=== PATIENT | male | born 1980 | race Caucasian/White ===

== ENCOUNTER 2016-05-14 06:47 | Emergency (ER) | payer OTHER ==
--- NOTE | 2016-05-14 07:12 | Emergency Department Record ---
History of Present Illness - General Chief complaint: Cold Stated complaint: COLD FOR A MONTH Time Seen by Provider: 05/14/16 07:06 Source: Patient Mode of Arrival: Ambulatory Limitations: No limitations - History of Present Illness Initial comments: 35 yo male presents with about 3 weeks of sinus drainage and congestion with facial pain. The drainage is discolored. No fevers. Mild cough. He has some pressure in the ears as well. No NVD. NO vision changes. PCP Hankenson. ALMANZAR complaint: Sore throat, Other (Nasal congestion with drainage) Onset/Timin -: Week(s) Severity: Moderate Severity scale (1-10): 4 Quality: Aching Consistency: Constant Improves with: None Worsens with: Swallowing Associated Symptoms: Fever, Pain with swallowing, Sore throat - Related Data Previous Rx's Medication Instructions Recorded Azithromycin [Zithromax] 250 mg PO DAILY #6 tab 05/14/16 Fluticasone Propionate [Flonase] 2 spray EACH NARES DAILY #1 bottle 05/14/16 Allergies Allergy/AdvReac Type Severity Reaction Status Date / Time No Known Drug Allergies Allergy Verified 07/15/15 07:30 Travel Screening - Travel/Exposure Within Last 30 Days Have you traveled within the last 30 days?: No - Travel Symptoms Symptom Screening: None Review of Systems Constitutional: Denies: Chills, Fever, Malaise, Weakness Eyes: Denies: Eye discharge, Eye pain, Photophobia, Vision change ENT: Reports: Congestion, Ear pain, Throat pain Respiratory: Reports: Cough. Denies: Dyspnea, Hemoptysis, Stridor, Wheezes Cardiovascular: Denies: Chest pain, Palpitations, Syncope Endocrine: Denies: Fatigue Gastrointestinal: Denies: Abdominal pain, Diarrhea, Nausea, Vomiting Genitourinary: Denies: Dysuria, Frequency, Hematuria Musculoskeletal: Denies: Arthralgia, Back pain, Myalgia Skin: Denies: Bruising, Change in color, Rash Neurological: Reports: Headache. Denies: Abnormal gait, Confusion, Numbness, Paresthesias, Tingling, Tremors, Vertigo, Weakness Psychiatric: Denies: Anxiety Hematological/Lymphatic: Reports: Swollen glands. Denies: Blood Clots, Easy bleeding, Easy bruising Past Medical History - SOCIAL HISTORY Smoking Status: Never smoker - RESPIRATORY Hx Respiratory Disorders: No - CARDIOVASCULAR Hx Cardio Disorders: No - NEURO Hx Neuro Disorders: No - GI Hx GI Disorders: Yes Hx Reflux: Yes Hx Hiatal Hernia: Yes - Hx Genitourinary Disorders: No - ENDOCRINE Hx Endocrine Disorders: No - MUSCULOSKELETAL Hx Musculoskeletal Disorders: No - PSYCH Hx Psych Problems: No - HEMATOLOGY/ONCOLOGY Hx Hematology/Oncology Disorders: No Family Medical History Any Significant Family History?: Yes Family Hx Comment (NOT TO BE USED IN PLACE OF ITEMS BELOW): Father- hiatal hernia Hx Cancer: Mother Hx Heart Disease: Grandparents Hx HTN: Grandparents Hx Stroke: Grandparents Physical Exam - General General Appearance: Alert, Oriented x3, Cooperative, No acute distress Limitations: No limitations - Head Head exam: Normocephalic, Normal inspection - Eye Eye exam: Normal appearance, PERRL. negative: Conjunctival injection, Periorbital swelling, Scleral icterus - ENT ENT exam: Normal exam, Mucous membranes moist, Normal external ear exam, Normal orophraynx, TM's normal bilaterally. negative: Mucous membranes dry Ear exam: Normal external inspection. negative: External canal tenderness Nasal Exam: Discharge (yellow in color), Sinus tenderness (facial, and frontal) . negative: Active bleeding, Dried blood Mouth exam: Normal external inspection, Tongue normal Teeth exam: Normal inspection. negative: Dental caries Throat exam: Normal inspection. negative: Tonsillar erythema, Tonsillar exudate - Neck Neck exam: Normal inspection, Full ROM. negative: Lymphadenopathy, Meningismus , Tenderness - Respiratory Respiratory exam: Normal lung sounds bilaterally. negative: Respiratory distress - Cardiovascular Cardiovascular Exam: Regular rate, Normal rhythm, Normal heart sounds - Rectal Rectal exam: Deferred - exam: Deferred - Extremities Extremities exam: Normal inspection, Normal capillary refill. negative: Pedal edema - Back Back exam: Reports: Full ROM - Neurological Neurological exam: Alert, Normal gait, Oriented X3 - Psychiatric Psychiatric exam: Normal affect, Normal mood. negative: Agitated, Anxious - Skin Skin exam: Dry, Intact, Normal color, Warm Course - Reevaluation(s) Reevaluation #1: The examination is CW sinusitis We discussed home care and follow up with the PCP 05/14/16 07:09 Disposition Disposition: Discharge Clinical Impression: Sinusitis Qualifiers: Sinusitis location: frontal Chronicity: acute Recurrence: non-recurrent Qualified Code(s): J01.10 - Acute frontal sinusitis, unspecified Disposition: Home, Self-Care Condition: (1) Good Instructions: Sinusitis (ED) Additional Instructions: Call your doctor for follow up in the next week Return if you have any new concerns or symptoms Prescriptions: Fluticasone Propionate [Flonase] 2 spray EACH NARES DAILY #1 bottle Azithromycin [Zithromax] 250 mg PO DAILY #6 tab Forms: Patient Portal Access Time of Disposition: 07:11
== END 2016-05-14 07:19 | disposition home or self-care (01) ==
LOC: ER 06:47
DX: J01.10 Acute frontal sinusitis, unspecified (principal); R05 Cough; J02.9 Acute pharyngitis, unspecified
CPT/HCPCS: 99282

== ENCOUNTER 2017-02-13 21:42 | Emergency (ER) | payer OTHER ==
--- NOTE | 2017-02-13 22:09 | Emergency Department Record ---
History of Present Illness - General Chief Complaint: Fall Injury Stated Complaint: LT ANKLE SWELLING/PAIN Time Seen by Provider: 02/13/17 22:04 Source: Patient Mode of Arrival: Ambulatory Limitations: No limitations - History of Present Illness Initial Comments: 36 yo male presents to ED for evaluation of medial ankle pain following a trip and fall injury while playing soccer. Patient reports that he was able to ambulate following injury, denies other injury on examination. Patient denies health problems at his baseline. MD Complaint: Fall Onset/Timin -: Hour(s) Fall From: Standing When Fall Occurred: 1 hour DOUBLE CUT SAWYER Fall Witnessed: Yes, by bystander Place Fall Occurred: Other Loss of Consciousness: None Prolonged Down Time?: No Symptoms Prior to Fall: None Location: Other Location - Extremities: Left: Ankle Severity: Mild Severity scale (1-10): 4 Context: Tripped/slipped Associated Symptoms: Denies - [place] Coma Scale Eye Response: (4) Open spontaneously Motor Response: (6) Obeys commands Verbal Response: (5) Oriented Page Total: 15 - Related Data Previous Rx's Medication Instructions Recorded Fluticasone Propionate [Flonase] 2 spray EACH NARES DAILY #1 bottle 05/14/16 Allergies Allergy/AdvReac Type Severity Reaction Status Date / Time No Known Drug Allergies Allergy Verified 02/13/17 21:57 Travel Screening - Travel/Exposure Within Last 30 Days Have you traveled within the last 30 days?: No - Travel/Exposure Within Last Year Have you traveled outside the [place] in the last year?: Yes Location Detail:: [place] - Additonal Travel Details Have you been exposed to anyone with a communicable illness?: No - Travel Symptoms Symptom Screening: None Review of Systems Constitutional: Denies: Chills, Fever, Malaise, Night sweats Eyes: Denies: Eye discharge, Eye pain ENT: Denies: Congestion, Ear pain, Epistaxis Respiratory: Denies: Cough, Dyspnea Cardiovascular: Denies: Chest pain, Dyspnea on exertion Endocrine: Denies: Fatigue, Heat or cold intolerance Gastrointestinal: Denies: Abdominal pain, Nausea, Vomiting Genitourinary: Denies: Incontinence, Retention Musculoskeletal: Reports: Arthralgia, Joint swelling. Denies: Back pain, Gout Skin: Denies: Bruising, Change in color Neurological: Denies: Abnormal gait, Confusion, Headache, Seizure Psychiatric: Denies: Anxiety Hematological/Lymphatic: Denies: Anemia, Blood Clots Past Medical History - SOCIAL HISTORY Smoking Status: Never smoker Alcohol Use: Heavy Alcohol Use Comment: 1 BEER DAILY Drug Use: None - RESPIRATORY Hx Respiratory Disorders: No - CARDIOVASCULAR Hx Cardio Disorders: No - NEURO Hx Neuro Disorders: No - GI Hx GI Disorders: Yes Hx Reflux: Yes Hx Hiatal Hernia: Yes - Hx Genitourinary Disorders: No - ENDOCRINE Hx Endocrine Disorders: No - MUSCULOSKELETAL Hx Musculoskeletal Disorders: No - PSYCH Hx Psych Problems: No - HEMATOLOGY/ONCOLOGY Hx Hematology/Oncology Disorders: No Family Medical History Any Significant Family History?: No Family Hx Comment (NOT TO BE USED IN PLACE OF ITEMS BELOW): Father- hiatal hernia Hx Cancer: Mother Hx Heart Disease: Grandparents Hx HTN: Grandparents Hx Stroke: Grandparents Physical Exam - General General Appearance: Alert, Oriented x3, Cooperative, Mild distress Limitations: No limitations - Head Head exam: Atraumatic, Normocephalic, Normal inspection Head exam detail: negative: Abrasion, Contusion, Porter's sign, General tenderness, Hematoma, Laceration - Eye Eye exam: Normal appearance. negative: Conjunctival injection, Periorbital swelling, Periorbital tenderness, Scleral icterus - ENT Ear exam: negative: Auricular hematoma, Auricular trauma Nasal Exam: negative: Active bleeding, Discharge, Dried blood, Foreign body Mouth exam: negative: Drooling, Laceration, Muffled voice, Tongue elevation - Neck Neck exam: Normal inspection. negative: Meningismus, Tenderness - Respiratory Respiratory exam: Normal lung sounds bilaterally. negative: Rales, Respiratory distress, Rhonchi, Stridor - Cardiovascular Cardiovascular Exam: Regular rate, Normal rhythm, Normal heart sounds Peripheral Pulses: 3+: Dorsalis Pedis (L) - GI/Abdominal GI/Abdominal exam: Soft. negative: Rebound, Rigid, Tenderness - Rectal Rectal exam: Deferred - exam: Deferred - Extremities Extremities exam: Joint swelling, Tenderness, Other (STS and tender to palpation over the left meidal ankle, achilles intact, compartments of the lower extremity are soft on examination, strong DPP, no pain to the proximal leg or foot on exmaination.). negative: Calf tenderness, Pedal edema - Back Back exam: Denies: CVA tenderness (R), CVA tenderness (L) - Neurological Neurological exam: Alert, Normal gait, Oriented X3 - Psychiatric Psychiatric exam: Normal affect, Normal mood - Skin Skin exam: Normal color. negative: Abrasion Type of lesion: negative: abrasion Course Vital Signs 02/13/17 21:52 Pulse Rate 78 Respiratory 18 Rate Blood Pressure 126/83 Pulse Ox 98 - Reevaluation(s) Reevaluation #1: 02/13/17 22:31 Left ankle: no fracture identified Patient was updated on his radiology results, will place in air splint with instructions for follow-up. Disposition Disposition: Discharge Clinical Impression: Medial ankle sprain Qualifiers: Encounter type: initial encounter Laterality: left Qualified Code(s): S93.422A - Sprain of deltoid ligament of left ankle, initial encounter Disposition: Home, Self-Care Condition: (2) Stable Instructions: Ankle Sprain (ED) Additional Instructions: Return to ED if your symptoms worsen or if you have any concerns. Ice and Ibuprofen as needed for pain symptoms Follow-up with your family doctor in 3-5 days as directed. Forms: Patient Portal Access Time of Disposition: 22:30 Quality - Quality Measures Quality Measures: N/A - Blood Pressure Screening Does Patient Have Any of the Following: No Blood Pressure Classification: Pre-Hypertensive BP Reading Systolic Measurement: 126 Diastolic Measurement: 83 Screening for High Blood Pressure: < Pre-Hypertensive BP, F/U Documented > [ G8950] Pre-Hypertensive Follow-up Interventions: Referral to alternative/primary care provider.
--- NOTE | 2017-02-15 08:21 | RADIOLOGY REPORT ---
EXAM: LEFT ANKLE, THREE VIEWS HISTORY: PATIENT HAS MEDIAL ANKLE PAIN. TECHNIQUE: Three views of the left ankle are provided without comparison examinations. FINDINGS: There is no radiographic evidence of a fracture or dislocation of the left ankle. No radiopaque foreign bodies are identified. The ankle mortise is intact. There is soft tissue swelling identified over the medial malleolus. Mild anterior tibiotalar fat pad prominence is noted. IMPRESSION: SOFT TISSUE SWELLING OVER THE MEDIAL MALLEOLUS WITHOUT RADIOGRAPHIC EVIDENCE OF A FRACTURE OR DISLOCATION OF THE LEFT ANKLE. IF THERE IS FURTHER CLINICAL CONCERN FOR A LIGAMENTOUS INJURY THEN MRI OF THE LEFT ANKLE CAN BE OBTAINED FOR FURTHER EVALUATION. JOB NUMBER: [id number] MTDD
== END 2017-02-13 22:37 | disposition home or self-care (01) ==
LOC: ER 21:42
DX: S93.422A Sprain of deltoid ligament of left ankle, initial encounter (principal); W01.0XXA Fall on same level from slipping, tripping and stumbling without subsequent striking against object, initial encounter; Y93.66 Activity, soccer
CPT/HCPCS: 99283

== ENCOUNTER 2017-06-13 00:27 | Emergency (ER) | payer OTHER ==
--- NOTE | 2017-06-13 00:47 | Emergency Department Record ---
History of Present Illness - General Chief complaint: Extremity Problem Stated complaint: LEFT ARM PAIN Time Seen by Provider: 06/13/17 00:47 Source: Patient Mode of Arrival: Ambulatory Limitations: No limitations - History of Present Illness Initial comments: 36 yo male presents to ED for evaluation of left upper extremity pain and numbness that has been constant for >24 hours. Patient denies injury, extremity weakness, chest pain, difficulty in breathing, or worsening of his symptoms with exertion. Patient denies health problems at his baseline, denies CAD history <55 years in his parents, denies smoking history. Patient reports regular exercise without symptoms as well. Patient was reading on the internet that his symptoms may be caused by his heart. MD Complaint: Extremity pain Onset/Timin -: Days(s) Location: Left, Arm History of Same: No -: Yes Myalgia Severity scale (1-10): 8 Quality: Sharp Consistency: Constant Improves with: Nothing Worsens with: Nothing - Related Data Allergies Allergy/AdvReac Type Severity Reaction Status Date / Time No Known Drug Allergies Allergy Verified 02/13/17 21:57 Travel Screening - Travel/Exposure Within Last 30 Days Have you traveled within the last 30 days?: No Review of Systems Constitutional: Denies: Chills, Fever, Malaise, Night sweats Eyes: Denies: Eye discharge, Eye pain ENT: Denies: Congestion, Ear pain, Epistaxis Respiratory: Denies: Cough, Dyspnea Cardiovascular: Denies: Chest pain, Dyspnea on exertion Endocrine: Denies: Fatigue, Heat or cold intolerance Gastrointestinal: Denies: Abdominal pain, Nausea, Vomiting Genitourinary: Denies: Incontinence, Retention Musculoskeletal: Reports: Myalgia. Denies: Arthralgia, Back pain, Gout, Joint swelling Skin: Denies: Bruising, Change in color Neurological: Denies: Abnormal gait, Confusion, Headache, Seizure Psychiatric: Denies: Anxiety Hematological/Lymphatic: Denies: Anemia, Blood Clots Past Medical History - SOCIAL HISTORY Smoking Status: Never smoker Alcohol Use: None Drug Use: None - RESPIRATORY Hx Respiratory Disorders: No - CARDIOVASCULAR Hx Cardio Disorders: No - NEURO Hx Neuro Disorders: No - GI Hx GI Disorders: Yes Hx Reflux: Yes Hx Hiatal Hernia: Yes - Hx Genitourinary Disorders: No - ENDOCRINE Hx Endocrine Disorders: No - MUSCULOSKELETAL Hx Musculoskeletal Disorders: No - PSYCH Hx Psych Problems: No - HEMATOLOGY/ONCOLOGY Hx Hematology/Oncology Disorders: No Family Medical History Any Significant Family History?: Yes Family Hx Comment (NOT TO BE USED IN PLACE OF ITEMS BELOW): Father- hiatal hernia Hx Cancer: Mother Hx Heart Disease: Grandparents Hx HTN: Grandparents Hx Stroke: Grandparents Physical Exam - General General Appearance: Alert, Oriented x3, Cooperative, No acute distress Limitations: No limitations - Head Head exam: Atraumatic, Normocephalic, Normal inspection Head exam detail: negative: Abrasion, Contusion, Porter's sign, General tenderness, Hematoma, Laceration - Eye Eye exam: Normal appearance. negative: Conjunctival injection, Periorbital swelling, Periorbital tenderness, Scleral icterus - ENT Ear exam: negative: Auricular hematoma, Auricular trauma Nasal Exam: negative: Active bleeding, Discharge, Dried blood, Foreign body Mouth exam: negative: Drooling, Laceration, Muffled voice, Tongue elevation - Neck Neck exam: Normal inspection. negative: Meningismus, Tenderness - Respiratory Respiratory exam: Normal lung sounds bilaterally. negative: Rales, Respiratory distress, Rhonchi, Stridor - Cardiovascular Cardiovascular Exam: Normal rhythm, Normal heart sounds, Bradycardia - GI/Abdominal GI/Abdominal exam: Soft. negative: Rebound, Rigid, Tenderness - Rectal Rectal exam: Deferred - exam: Deferred - Extremities Extremities exam: Normal inspection. negative: Calf tenderness, Pedal edema, Tenderness - Back Back exam: Denies: CVA tenderness (R), CVA tenderness (L) - Neurological Neurological exam: Alert, Normal gait, Oriented X3 - Psychiatric Psychiatric exam: Normal affect, Normal mood - Skin Skin exam: Normal color. negative: Abrasion Type of lesion: negative: abrasion Course Vital Signs 06/13/17 00:31 Temperature 97.5 F L Pulse Rate [ 50 L Pulse Ox Probe] Respiratory 20 Rate Blood Pressure 128/81 [Right Arm] Pulse Ox 99 - Reevaluation(s) Reevaluation #1: 06/13/17 00:47 EKG: Sinus Bradycardia 46 Normal axis, normal intervals No acute ST-T wave changes Reevaluation #2: 06/13/17 00:58 Patient's EKG reviewed and appears normal except for rate. Patient has no significant risk factors for CAD, denies chest pain or SANDRA, and denies worsening of his symptoms with exertion. Patient has no focal deficits on examination to suggest CVA. As a result, I do not feel the patient's symptoms are cardiac in nature. Patient is in agreement with the plan for discharge at this time with instructions to follow-up with his PCP in 3-5 days for further evaluation. Disposition Disposition: Discharge Clinical Impression: Left upper arm pain Disposition: Home, Self-Care Condition: (2) Stable Instructions: Arm Pain (ED) Additional Instructions: Return to ED if your symptoms worsen or if you have any concerns. Ibuprofen as needed for pain (600-800 mg as needed every 6 hours). Follow-up with Dr. Jerez in 3-5 days as directed. Forms: Patient Portal Access Time of Disposition: 01:01 Quality - Quality Measures Quality Measures: N/A - Blood Pressure Screening Does Patient Have Any of the Following: No Blood Pressure Classification: Pre-Hypertensive BP Reading Systolic Measurement: 128 Diastolic Measurement: 81 Screening for High Blood Pressure: < Pre-Hypertensive BP, F/U Documented > [ G8950] Pre-Hypertensive Follow-up Interventions: Referral to alternative/primary care provider.
== END 2017-06-13 01:08 | disposition home or self-care (01) ==
LOC: ER 00:27
DX: M79.622 Pain in left upper arm (principal); R20.0 Anesthesia of skin
CPT/HCPCS: 93005; 93010; 99284

== ENCOUNTER 2017-12-05 10:32 | Day surgery (SDC) | payer OTHER ==
[2017-12-05] MEDS ORDERED: PROPOFOL 10 MG/ML VIAL IV ONE (10:33)
[2017-12-05] MEDS ORDERED: LIDOCAINE 2% MDV (20MG/ML) 20ML VIAL IV ONE (10:33)
--- NOTE | 2017-12-07 11:50 | Operative Note ---
DATE OF SURGERY: 12/05/2017 OPERATION: COLONOSCOPY to the cecum. INDICATION: Intermittent bright red rectal bleeding. This is the patient's first colonoscopy. ANESTHESIA: Intravenous sedation was administered by the department of anesthesiology and included Diprivan titrated to effect. PROCEDURE: Following informed consent from this alert individual including a discussion of the risks and benefits of the procedure and an opportunity for the patient to ask questions, the patient was in the left lateral decubitus position. A digital rectal examination was performed. No abnormalities were noted. Following this, the Olympus ARR521 video colonoscope was inserted into the rectum without resistance. The rectal mucosa had a normal appearance with normal folds and distensibility. The colonoscope was advanced up through the bowel to the level of the cecum without much difficulty. Throughout the bowel the mucosa appeared normal, the folds were normal, and the bowel was fairly well distensible. The cecum was defined by noting the appendiceal orifice and ileocecal valve. The colon preparation was good. From the base of the cecum, the colonoscope was then slowly withdrawn. No abnormalities were detected throughout the colon until the rectum was reached. Retroflexion in the rectum did demonstrate small internal hemorrhoids. No other abnormalities were noted. The instrument was straightened and removed. The patient tolerated the procedure well and was returned to the recovery area in stable condition. IMPRESSION: 1. Small internal hemorrhoids. 2. Otherwise unremarkable colonoscopy to the cecum. RECOMMENDATIONS: The patient was advised to follow up with Dr. Jerez. He can use topical hemorrhoid cream if bleeding should recur, or if it persists, he can see a surgeon for possible hemorrhoidectomy although at this time they seem quite small. I do recommend repeat colonoscopy in 10 years' time or sooner if problems arise. Followup will be with Dr. Jerez. As always, thank you for allowing me to participate in the care of your patient. CC: Yady ERICKSON
== END 2017-12-05 12:42 | disposition home or self-care (01) ==
LOC: HOP 10:32
PROVIDERS: ATTEND Internal Medicine Gastroenterology
DX: K62.5 Hemorrhage of anus and rectum (principal); K64.8 Other hemorrhoids

== ENCOUNTER 2018-08-20 14:49 | Emergency (ER) | payer OTHER ==
[2018-08-20] MEDS ORDERED: Diph,Pert(Acell),Tet Vac 0.5 ML SYR IM ONE (15:00)
[2018-08-20] MEDS ORDERED: CLINDAMYCIN 150 MG CAP PO ONE (15:00)
--- NOTE | 2018-08-20 15:03 | Emergency Department Record ---
History of Present Illness - General Chief Complaint: Laceration(s) Stated Complaint: LT INDEX LAC Time Seen by Provider: 08/20/18 14:59 Source: Patient Mode of Arrival: Ambulatory Limitations: No limitations - History of Present Illness Initial Commments: 38 yo male presents with a finger laceration to the left index finger. The injury occurred using a power checker. He was not wearing gloves at the time. He has full ROM without limitation at this time. He has not pain with ROM. No swelling. No other proximal hand pain. He is unsure when his last tetanus shot was given. The power checker at 3500psi. He was using the Green fanned tip. -: Minutes(s) Extremity Location: Left: Hand Place: Home Context: Accidental Associated Symptoms: None Treatments Prior to Arrival: Bandage - Page Coma Scale Eye Response: (4) Open spontaneously Motor Response: (6) Obeys commands Verbal Response: (5) Oriented Page Total: 15 - Related Data Hx Tetanus Toxoid Vaccination: Yes Year of Tetanus Vaccination: 2010 Previous Rx's Medication Instructions Recorded Clindamycin HCl 300 mg PO TID #21 capsule 08/20/18 Allergies Allergy/AdvReac Type Severity Reaction Status Date / Time No Known Drug Allergies Allergy Verified 02/13/17 21:57 Review of Systems Constitutional: Denies: Chills, Fever, Malaise, Weakness Eyes: Denies: Eye discharge ENT: Denies: Congestion, Throat pain Respiratory: Denies: Cough Cardiovascular: Denies: Chest pain, Syncope Endocrine: Denies: Fatigue Gastrointestinal: Denies: Nausea, Vomiting Genitourinary: Denies: Dysuria, Frequency, Hematuria Musculoskeletal: Denies: Arthralgia, Back pain, Joint swelling, Myalgia, Neck pain Skin: Reports: Other (Laceration). Denies: Bruising, Change in color, Rash Neurological: Denies: Headache Psychiatric: Denies: Anxiety Hematological/Lymphatic: Denies: Blood Clots, Easy bleeding, Easy bruising Past Medical History - SOCIAL HISTORY Smoking Status: Never smoker Alcohol Use Comment: 1 BEER DAILY - RESPIRATORY Hx Respiratory Disorders: No - CARDIOVASCULAR Hx Cardio Disorders: Yes - NEURO Hx Neuro Disorders: No - GI Hx GI Disorders: Yes Hx Reflux: Yes Hx Hiatal Hernia: Yes Hx Rectal Bleeding: Yes (x1) - Hx Genitourinary Disorders: No - ENDOCRINE Hx Endocrine Disorders: No - MUSCULOSKELETAL Hx Musculoskeletal Disorders: Yes - PSYCH Hx Psych Problems: Yes Hx Anxiety: Yes (not anxiety) - HEMATOLOGY/ONCOLOGY Hx Hematology/Oncology Disorders: No Family Medical History Family Hx Comment (NOT TO BE USED IN PLACE OF ITEMS BELOW): Father- hiatal hernia Hx Cancer: Mother *Cancer Comment: colon Hx Diabetes: Father, Mother, Grandparents Hx Heart Disease: Grandparents Hx HTN: Grandparents Hx Stroke: Grandparents Physical Exam - General General Appearance: Alert, Oriented x3, Cooperative, No acute distress Limitations: No limitations - Head Head exam: Atraumatic - Eye Eye exam: Normal appearance. negative: Conjunctival injection - ENT ENT exam: Normal exam Ear exam: Normal external inspection Nasal Exam: Normal inspection Mouth exam: Normal external inspection - Neck Neck exam: Normal inspection - Cardiovascular Peripheral Pulses: 2+: Radial (L) - Rectal Rectal exam: Deferred - exam: Deferred - Extremities Extremities exam: Full ROM, Normal capillary refill. negative: Tenderness Image of Hand: 1 - 12mm laceration. No swellling of the digit. No tenderness of the digit. Full ROM without pain or limitation. The flesh of the finger is very soft. Other than the laceration it is normal on appearance - Neurological Neurological exam: Alert, Oriented X3 - Psychiatric Psychiatric exam: Normal affect, Normal mood - Skin Skin exam: Other (Laceration 12mm). negative: Cyanosis, Intact, Mottled Course Vital Signs 08/20/18 14:54 Temperature 97.9 F Pulse Rate 79 Respiratory 18 Rate Blood Pressure 149/91 Pulse Ox 96 - Reevaluation(s) Reevaluation #1: The XR was negative for FB, air, or other abnormalities to suggest gross contamination. No fracture. I discussed at length that power checker injuries can be higher risk. His examination is however is normal except for the laceration. There is no pain, swelling, signs of tendon involvement, signs of any high pressure, high velocity injury. The XR does not demonstrate any signs of high pressure infiltration with air. The finger is very soft with painless ROM. We discussed the risks of loose closure given the persistent bleeding, followed by splinting. He understands this and agrees. He will be placed on antibiotics as well. We discussed the immediate reasons to return to the ED for a recheck as well. Procedure Note 12mm laceration of the index finger Wound was cleaned and prepped in sterile fashion, no residual FB identified on examination. The wound was copiously irrigated with NS Wound was anesthetized with 2 mL of 1% Lidocaine plain by digital block ensuring minimal fluid infiltration The laceration was repaired with 4-0 Ethilon sutures in interrupted fashion. Patient tolerated the procedure well without complications. We discussed home care, reasons for immediate return if any concerns, and suture removal in 10 days 08/20/18 15:51 Splint placed in the ED Rx for Clindamycin provided Disposition Disposition: Discharge Clinical Impression: Finger laceration Disposition: Home, Self-Care Condition: (1) Good Instructions: Laceration (ED) Additional Instructions: Use the splint for support and comfort You may clean the area daily with mild soap and water Return immediately if you have pain, drainage, swelling, redness Take the Clindamycin as directed one week Prescriptions: Clindamycin HCl 300 mg PO TID #21 capsule Forms: Patient Portal Access Time of Disposition: 16:13 Quality - Quality Measures Quality Measures: N/A - Blood Pressure Screening Does Patient Have Any of the Following: No Blood Pressure Classification: Hypertensive Reading Systolic Measurement: 149 Diastolic Measurement: 91 Screening for High Blood Pressure: < Pre-Hypertensive BP, F/U Documented > [ G8950] Pre-Hypertensive Follow-up Interventions: Referral to alternative/primary care provider.
--- NOTE | 2018-08-23 10:01 | RADIOLOGY REPORT ---
EXAM: LEFT HAND, THREE VIEWS HISTORY: LACERATION TO DISTAL ASPECT OF THE LEFT INDEX FINGER. TECHNIQUE: Three views of the left hand were obtained. Comparison: None. Encounter: Initial. FINDINGS: There is normal bone mineralization. No fracture, dislocation, or destructive bone lesion is seen. The articular relations are maintained. No periarticular erosion. There is mild soft tissue swelling involving the radial distal aspect of the index finger associated with linear lucency consistent with laceration. No radiopaque foreign body. IMPRESSION: 1. NO ACUTE BONE NOR JOINT ABNORMALITY IDENTIFIED. NO RADIOPAQUE FOREIGN BODY. 2. LINEAR LUCENCY INVOLVING THE SOFT TISSUES OF THE DISTAL ASPECT OF THE INDEX FINGER LATERALLY CONSISTENT WITH LACERATION. JOB NUMBER: [id number] MTDD
== END 2018-08-20 16:33 | disposition home or self-care (01) ==
LOC: ER 14:49
DX: S61.211A Laceration without foreign body of left index finger without damage to nail, initial encounter (principal); W31.89XA Contact with other specified machinery, initial encounter; Y93.H9 Activity, other involving exterior property and land maintenance, building and construction; Y92.007 Garden or yard of unspecified non-institutional (private) residence as the place of occurrence of the external cause
CPT/HCPCS: 12041; 90715; 96372; 99283; 99284

== ENCOUNTER 2019-01-21 18:03 | Emergency (ER) | payer OTHER ==
[2019-01-21] MEDS ORDERED: CEPHALEXIN 500 MG CAPSULE PO STA (19:57)
--- NOTE | 2019-01-21 20:01 | Emergency Department Record ---
History of Present Illness - General Chief complaint: Extremity Problem Stated complaint: RT HAND MIDDLE LAC Time Seen by Provider: 01/21/19 19:54 Source: Patient Mode of Arrival: Ambulatory Limitations: No limitations - History of Present Illness Initial comments: The patient is here due to a R 3rd finger lac 2 hours ago. He accidentally cut it on metal while working on a truck. His Td is UTD. There is pain at the finger tip but no bleeding. His DIP flexion and extension are normal to the R 3rd finger. MD Complaint: Extremity pain Onset/Timin -: Minutes(s) Location: Right History of Same: No Radiation: None Quality: Aching Consistency: Constant Improves with: Nothing Worsens with: Palpation Associated Symptoms: Denies other symptoms - Related Data Previous Rx's Medication Instructions Recorded Cephalexin [Keflex] 500 mg PO QID #20 cap 01/21/19 Allergies Allergy/AdvReac Type Severity Reaction Status Date / Time No Known Drug Allergies Allergy Verified 02/13/17 21:57 Travel Screening - Travel/Exposure Within Last 30 Days Have you traveled within the last 30 days?: No - Travel Symptoms Symptom Screening: None Review of Systems Constitutional: Denies: Chills, Fever Past Medical History - SOCIAL HISTORY Smoking Status: Never smoker Alcohol Use: Occasional Drug Use: None - RESPIRATORY Hx Respiratory Disorders: No - CARDIOVASCULAR Hx Cardio Disorders: Yes - NEURO Hx Neuro Disorders: No - GI Hx GI Disorders: Yes Hx Reflux: Yes Hx Hiatal Hernia: Yes Hx Rectal Bleeding: Yes (x1) - Hx Genitourinary Disorders: No - ENDOCRINE Hx Endocrine Disorders: No - MUSCULOSKELETAL Hx Musculoskeletal Disorders: Yes - PSYCH Hx Psych Problems: Yes Hx Anxiety: Yes (not anxiety) - HEMATOLOGY/ONCOLOGY Hx Hematology/Oncology Disorders: No Family Medical History Any Significant Family History?: Yes Family Hx Comment (NOT TO BE USED IN PLACE OF ITEMS BELOW): Father- hiatal hernia Hx Cancer: Mother *Cancer Comment: colon Hx Diabetes: Father, Mother, Grandparents Hx Heart Disease: Grandparents Hx HTN: Grandparents Hx Stroke: Grandparents Physical Exam - General General Appearance: Alert, Cooperative - Head Head exam: Atraumatic - Eye Eye exam: Normal appearance - Extremities Extremities exam: negative: Normal inspection (There is a < 1 cm vertical superficial lac to the R 3rd finger tip and minimally into the nail. There is presently nothing to suture.) Image of Finger Tip: 1 - Finger tip lac. - Neurological Neurological exam: Alert. negative: Motor sensory deficit Course Vital Signs 01/21/19 19:12 Temperature 98.2 F Pulse Rate [ 61 Left] Respiratory 16 Rate Blood Pressure 131/82 [Left Arm] Pulse Ox 98 Medical Decision Making - Data Complexity MDM Data: X-Ray Ordered and/or Reviewed - Radiology Data Radiology results: Report reviewed (R 3rd finger: Neg per Rad.) Disposition Disposition: Discharge Clinical Impression: Laceration of finger Qualifiers: Encounter type: initial encounter Finger: middle finger Damage to nail status: without damage Foreign body presence: without foreign body Laterality: right Qualified Code(s): S61.212A - Laceration without foreign body of right middle finger without damage to nail, initial encounter Disposition: Home, Self-Care Condition: (2) Stable Instructions: Finger Laceration (ED) Additional Instructions: Please keep dry for 2 days then no soaking until healed. Continue the Keflex for 5 days and return to the ER for any signs of infection. Prescriptions: Cephalexin [Keflex] 500 mg PO QID #20 cap Forms: Patient Portal Access Time of Disposition: 20:32 Quality - Quality Measures Quality Measures: N/A - Blood Pressure Screening View Details: Yes Does Patient Have Any of the Following: No Blood Pressure Classification: Pre-Hypertensive BP Reading Systolic Measurement: 131 Diastolic Measurement: 82 Screening for High Blood Pressure: < Pre-Hypertensive BP, F/U Documented > [G8950] Pre-Hypertensive Follow-up Interventions: Referral to alternative/primary care provider.
--- NOTE | 2019-01-23 14:46 | RADIOLOGY REPORT ---
EXAM: RIGHT MIDDLE FINGER, THREE VIEWS HISTORY: LACERATION, RULE OUT FOREIGN BODY. TECHNIQUE: Frontal, lateral and oblique views of the right middle finger were obtained. Comparison: None. FINDINGS: No cortical or trabecular disruption identified. The joint spaces appear maintained. No radiopaque foreign body visualized. IMPRESSION: NO ACUTE ABNORMALITY EVIDENT RADIOGRAPHICALLY AT THIS TIME. THE ER PHYSICIAN WAS NOTIFIED BY VOICE CLIP. JOB NUMBER: [id number] MTDD
== END 2019-01-21 20:42 | disposition home or self-care (01) ==
LOC: ER 18:03
DX: S61.212A Laceration without foreign body of right middle finger without damage to nail, initial encounter (principal); W45.8XXA Other foreign body or object entering through skin, initial encounter
CPT/HCPCS: 73140; 99283